=== PATIENT | female | born 1975 | race Caucasian/White ===

== ENCOUNTER 2016-05-15 11:50 | Observation (INO) | payer OTHER ==
[~2016-05-15] VITALS: Ht 158 cm; Wt 68.5 kg
[2016-05-15] MEDS ORDERED: PNV1TABL54 PO (12:05)
[2016-05-15 12:41] LABS: BASOPHILS # (AUTO) 0.02 K/uL (0.00-0.20); BASOPHILS % (AUTO) 0.2 % (0.0-2.0); EOSINOPHILS # (AUTO) 0.08 K/uL (0.00-0.70); EOSINOPHILS % (AUTO) 0.85 % (1.0-6.0); HEMATOCRIT 30.2 % (36-46); HEMOGLOBIN 10.2 g/dL (12.0-16.0); LYMPHOCYTES # (AUTO) 1.4 K/uL (1.0-4.8); LYMPHOCYTES % (AUTO) 14.3 % (22.0-44.0); MEAN CORPUSCULAR HEMOGLOBIN 29.8 pg (26.0-34.0); MEAN CORPUSCULAR HGB CONC 33.8 G/dL (31.0-37.0); MEAN CORPUSCULAR VOLUME 88 fL (80-100); MONOCYTES # (AUTO) 0.7 K/uL (0.1-1.0); MONOCYTES % (AUTO) 6.9 % (2.0-9.0); NEUTROPHILS # (AUTO) 7.8 K/uL (1.8-7.7); NEUTROPHILS % (AUTO) 77.7 % (40.0-70.0); RED BLOOD CELL COUNT(AUTO) 3.43 MIL/uL (4.00-5.20); RED CELL DISTRIBUTION WIDTH 15.3 % (11.5-14.5)
[2016-05-15 13:10] LABS: PROTHROMBIN TIME 10.5 SEC (9.4-11.6)
[2016-05-15] MEDS: BETAMETHASONE SOLUSPAN 6 MG/ML 5 ML VIAL IM SCH (14:46)
[2016-05-15 15:11] VITALS: BP 111/68
[2016-05-15] MEDS ORDERED: RINGERS SOLUTION,LACTATED 1,000 ML IV SCH (15:15)
[2016-05-15] MEDS: RINGERS SOLUTION,LACTATED 1,000 ML IV SCH ×3 (16:07→23:08)
[2016-05-15] MEDS ORDERED: NIFEdipine 10 MG CAPSULE PO ONE (19:15)
[2016-05-16] MEDS ORDERED: NIFEdipine 10 MG CAPSULE ONE (09:08)
[2016-05-16] MEDS ORDERED: NIFEdipine 10 MG CAPSULE PO ONE ×2 (09:15→11:00)
[2016-05-16] MEDS: BETAMETHASONE SOLUSPAN 6 MG/ML 5 ML VIAL IM SCH (10:58)
== END 2016-05-16 11:30 | disposition home or self-care (01) ==
LOC: 4S 11:50
PROVIDERS: ADMIT Obstetrics & Gynecology; ATTEND Obstetrics & Gynecology
DX: O46.92 Antepartum hemorrhage, unspecified, second trimester (principal); O62.9 Abnormality of forces of labor, unspecified; O34.12 Maternal care for benign tumor of corpus uteri, second trimester; O09.522 Supervision of elderly multigravida, second trimester; Z3A.26 26 weeks gestation of pregnancy
CPT/HCPCS: 36415; 59025; 76805; 85025; 85384; 85610; 85730; 96360; 96361 ×2; 96372 ×2; G0378 ×2; J0702 ×2; J7120 ×2

== ENCOUNTER 2016-08-11 21:45 | Observation (INO) | payer OTHER ==
[~2016-08-11] VITALS: Ht 158 cm; Wt 70.8 kg
[~2016-08-11 21:45] MED LIST: PNV1TABL54 PO
[2016-08-11 23:21] VITALS: BP 109/71
[2016-08-11] MEDS ORDERED: GLYB2.5 PO (23:35)
== END 2016-08-11 23:00 | disposition home or self-care (01) ==
LOC: 4S 21:45
PROVIDERS: ADMIT Obstetrics & Gynecology; ATTEND Obstetrics & Gynecology
DX: O46.93 Antepartum hemorrhage, unspecified, third trimester (principal); O99.013 Anemia complicating pregnancy, third trimester; O24.419 Gestational diabetes mellitus in pregnancy, unspecified control; O62.9 Abnormality of forces of labor, unspecified; O09.523 Supervision of elderly multigravida, third trimester; Z3A.38 38 weeks gestation of pregnancy
CPT/HCPCS: 59025; G0378

== ENCOUNTER 2016-08-13 09:05 | Inpatient (IN) | payer OTHER ==
[~2016-08-13] VITALS: Ht 157.5 cm; Wt 70.8 kg
[~2016-08-13 09:05] MED LIST changes: +GLYB2.5 PO; +OXYTOCIN 10 UNITS/ML VIAL IM ONE; +PHENYLEPHRINE HCL 10 MG/ML VIAL IVP ONE
[2016-08-13] MEDS ORDERED: RINGERS SOLUTION,LACTATED 1,000 ML IV ONE (16:29)
[2016-08-13] MEDS ORDERED: METOCLOPRAMIDE HCL 5 MG/ML 2 ML VIAL IVP ONE (16:30)
[2016-08-13] MEDS ORDERED: CITRIC ACID/SODIUM CITRATE 30 ML SOLUTION UDCUP PO ONE (16:30)
[2016-08-13 16:34] VITALS: BP 113/67
[2016-08-13 17:20] LABS: BASOPHILS % (AUTO) 0.2 % (0.0-2.0); EOSINOPHILS % (AUTO) 0.7 % (1.0-6.0); HEMATOCRIT 31.5 % (36-46); HEMOGLOBIN 10.8 g/dL (12.0-16.0); LYMPHOCYTES # (AUTO) 1.4 K/uL (1.0-4.8); LYMPHOCYTES % (AUTO) 16.1 % (22.0-44.0); MEAN CORPUSCULAR HEMOGLOBIN 31.1 pg (26.0-34.0); MEAN CORPUSCULAR HGB CONC 34.4 G/dL (31.0-37.0); MEAN CORPUSCULAR VOLUME 90 fL (80-100); MONOCYTES # (AUTO) 0.7 K/uL (0.1-1.0); MONOCYTES % (AUTO) 8.2 % (2.0-9.0); NEUTROPHILS # (AUTO) 6.3 K/uL (1.8-7.7); NEUTROPHILS % (AUTO) 74.8 % (40.0-70.0); RED BLOOD CELL COUNT(AUTO) 3.48 MIL/uL (4.00-5.20); RED CELL DISTRIBUTION WIDTH 17.3 % (11.5-14.5); WHITE BLOOD COUNT (AUTO) 8.4 K/uL (4.5-11.0)
[2016-08-13 18:41] LABS: GLUCOSE,POINT OF CARE 73 MG/DL (70-110)
[2016-08-13] MEDS ORDERED: MORPHINE SULFATE/PF 1 MG/ML 10 ML AMP ONE (19:03)
[2016-08-13] MEDS ORDERED: FentaNYL CITRATE-PF 100 MCG/2 ML VIAL ONE (19:03)
[2016-08-13 20:00] LABS: RBC MORPHOLOGY COMMENT ABNORMAL RBC MORPH
[2016-08-13] MEDS ORDERED: NACL ISO OSM IV ONE (20:02)
[2016-08-13] MEDS ORDERED: GENTAMICIN IV ONE (20:02)
[2016-08-13] MEDS ORDERED: GENTAMICIN 80 MG/NACL ISO-OSM 100 ML IV ONE (20:04)
[2016-08-13] MEDS ORDERED: FentaNYL CITRATE-PF 100 MCG/2 ML VIAL IVP PRN ×4 (20:15)
[2016-08-13] MEDS ORDERED: NALOXONE HCL 0.4 MG/ML VIAL IVP PRN (20:15)
[2016-08-13] MEDS ORDERED: DEXAMETHASONE SOD PHOS 4 MG/ML VIAL IVP PRN (20:15)
[2016-08-13] MEDS ORDERED: NALBUPHINE HCL 10 MG/ML VIAL IVP PRN ×4 (20:15)
[2016-08-13] MEDS ORDERED: ONDANSETRON HCL 4 MG/2 ML VIAL IVP PRN ×2 (20:15)
[2016-08-13] MEDS ORDERED: MEPERIDINE-PF 25 MG/ML SYRINGE IVP PRN (20:15)
[2016-08-13] MEDS ORDERED: DiphenhydrAMINE HCL 50 MG/ML VIAL IVP PRN ×2 (20:15)
[2016-08-13] MEDS ORDERED: DEXTROSE 5%-0.45% SODIUM CHL 1,000 ML IV SCH (20:16)
[2016-08-13] MEDS ORDERED: LANOLIN 7 GM OINTMENT TP PRN (20:30)
[2016-08-13] MEDS ORDERED: ACETAMINOPHEN/CODEINE 300-30 MG TABLET PO PRN ×2 (20:30)
[2016-08-13] MEDS: MAGNESIUM HYDROXIDE SUSPENSION 30 ML UDCUP PO SCH (21:00)
[2016-08-13] MEDS ORDERED: OXYTOCIN IV SCH (21:30)
[2016-08-13] MEDS ORDERED: DEXTROSE IV SCH (21:30)
[2016-08-13] MEDS ORDERED: SODIUM CHL IV SCH (21:30)
[2016-08-13] MEDS: DEXTROSE IV SCH (21:55)
[2016-08-13] MEDS: SODIUM CHL IV SCH (21:55)
[2016-08-13] MEDS: OXYTOCIN IV SCH (21:55)
[2016-08-14] MEDS: OXYTOCIN IV SCH ×3 (01:50→09:40)
[2016-08-14] MEDS: SODIUM CHL IV SCH ×3 (01:50→09:40)
[2016-08-14] MEDS: DEXTROSE IV SCH ×3 (01:50→09:40)
[2016-08-14] MEDS ORDERED: OXYGEN THERAPY IH SCH ×3 (08:00)
[2016-08-14] MEDS: MAGNESIUM HYDROXIDE SUSPENSION 30 ML UDCUP PO SCH ×2 (09:00→21:15)
[2016-08-14] MEDS ORDERED: DEXTROSE IV ONE (13:38)
[2016-08-14] MEDS ORDERED: SODIUM CHL IV ONE (13:38)
[2016-08-14] MEDS: IBUPROFEN 800 MG TABLET PO SCH (21:15)
[2016-08-15] MEDS: IBUPROFEN 800 MG TABLET PO SCH ×4 (02:45→22:18)
[2016-08-15] MEDS: MAGNESIUM HYDROXIDE SUSPENSION 30 ML UDCUP PO SCH ×2 (09:50→21:00)
[2016-08-16] MEDS: IBUPROFEN 800 MG TABLET PO SCH ×2 (03:55→10:10)
[2016-08-16] MEDS: MAGNESIUM HYDROXIDE SUSPENSION 30 ML UDCUP PO SCH (10:10)
[2016-08-16] MEDS ORDERED: IBUP-1547 PO (11:30)
== END 2016-08-16 12:05 | disposition home or self-care (01) | DRG 766 ==
LOC: 4S 09:05 → OBSVTOIN 09:05 → 4S 21:25
PROVIDERS: ADMIT Obstetrics & Gynecology; ATTEND Obstetrics & Gynecology
PROC: 10D00Z1 Extraction of Products of Conception, Low, Open Approach (ICD-10-PCS; principal; 2016-08-13)
DX: O44.33 Partial placenta previa with hemorrhage, third trimester (principal); O44.53 Low lying placenta with hemorrhage, third trimester; Z37.0 Single live birth; Z3A.36 36 weeks gestation of pregnancy
CPT/HCPCS: 82962; 86850; 86900; 86901; J0690; J1580; J2300; J2370; J2590; J2765; J3010; J7120